=== PATIENT | female | born 1960 | race Caucasian/White ===

== ENCOUNTER 2018-05-03 13:59 | Day surgery (SDC) | payer MEDICARE, SELFPAY ==
[2018-05-03] VITALS (8 sets, daily range): BP systolic 131–160; BP diastolic 69–96; PULSE 76–93; RESP 10–16; TEMP 36.1–36.3; O2SAT 93–99; BMI 56.7; BMI 54.1
--- NOTE | 2018-05-03 15:03 | P.HP_ITS ---
History of Present Illness Date Patient Seen: 05/03/18 Time Patient Seen: 14:58 Chief complaint: [id number] Narrative: Ms. Schneider is a 57-year-old female with a fall and twisting of her right ankle. The patient was seen in the clinic and was instructed to consult Orthopedics service. After reviewing patient's x-ray and determining that patient needs surgical treatment, the patient was contacted and was instructed to be scheduled for surgery treatment at [facility]. Patient History Medical History Cancer of right breast (Acute) Diabetes (Acute) HTN (hypertension) (Acute) Hyperlipidemia (Acute) Thyroid nodule (Acute) Surgical History History of arthroplasty of right knee (Acute) Hx of gastric bypass (Acute) Family & Social History Family History: Reviewed 05/03/18 by Hermila Titus MD Social History: household members none Meds Home Medications Medication Instructions Recorded Confirmed Type aspirin [Aspir-Low] 81 mg PO DAILY 05/03/18 05/03/18 History duloxetine 60 mg PO DAILY 05/03/18 05/03/18 History insulin glargine [Lantus Solostar 26 unit SUB-Q DAILY 05/03/18 05/03/18 History U-100 Insulin] lisinopril 20 mg PO DAILY 05/03/18 05/03/18 History metformin 1,000 mg PO BID 05/03/18 05/03/18 History naproxen sodium [Aleve] 220 mg PO DAILY 05/03/18 05/03/18 History pravastatin 10 mg PO DAILY 05/03/18 05/03/18 History Allergies Allergy/AdvReac Type Severity Reaction Status Date / Time adhesive tape Allergy Blister Verified 05/03/18 14:31 Sulfa (Sulfonamide Allergy Rash Verified 05/03/18 14:31 Antibiotics) Review of Systems Review of Systems All systems reviewed & are unremarkable except as noted in HPI and below Exam Vital Signs (past 8 hours): - 05/03/18 14:39 Temperature 97.1 F L Pulse Rate 93 H Respiratory Rate 16 Blood Pressure 131/79 H Pulse Oximetry 99 Oxygen Delivery Method Room Air Extrem Other: RLE with swelling, neurovascularly intact, skin has wrinkles and no blisters. Objective Imaging R Ankle x-ray: My impression: Right ankle with displaced medial malleolus fracture Assessment & Plan Plan: Assessment/Plan Narrative: 57 yo F with displaced medial malleolus fracture. After discussing risks benefits of treatment options with the patient, patient will be taken to the operative room for open reduction internal fixation of her medial malleolus. Time Spent With Patient Time with patient: 25 - 35 minutes
[2018-05-03 15:04] LABS: Hematocrit 37.2 % (36-46); Hemoglobin 11.9 g/dL (12.0-16.0); Mean Corpuscular HGB Conc 32.1 % (30-36); Mean Corpuscular Hemoglobin 27.2 PG (26-34); Mean Corpuscular Volume 84.5 fL (80-100); Platelet Count 492 X10^3/uL (150-400); Red Blood Cell Count 4.39 X10^6/uL (4.0-5.2); Red Cell Distribution Width 14.6 % (11.6-14.8); White Blood Cell Count 9.4 X10^3/uL (4.5-11.0)
[2018-05-03 15:13] LABS: Blood Urea Nitrogen 20 mg/dL (7-17); Calcium 9.7 mg/dL (8.4-10.2); Carbon Dioxide 32 mmol/L (22-32); Chloride 97 mmol/L (98-107); Estimated Glomerular Filt Rate > 60.0 mL/min (>60); Glucose 113 mg/dL (70-100); HEMOLYSIS < 15 (0-50); Potassium 4.3 mmol/L (3.4-5.1); Sodium 140 mmol/L (137-145)
[2018-05-03] MEDS: LACTATED RINGERS 1,000 ML 42 ML IV (15:13)
[2018-05-03] MEDS: CEFAZOLIN 2 GM/100 ML FROZ.PIGGY IV (15:22)
--- NOTE | 2018-05-03 16:00 | SUR.OPER ---
Supine on padded OR bed, head on gel donut on foam brick, arms secured on padded arm boards at <90 degrees abduction, legs uncrossed, safety belt at thigh, tape over blanket over non operative leg.
[2018-05-03] MEDS: BUPIVACAINE 0.5% (PF) VIAL 30 ML INJ (16:12)
[2018-05-03 16:17] LABS: Neutrophils Absolute Manual 6768 /uL (3000-5900); Total Cells Counted 100
--- NOTE | 2018-05-03 16:30 | DI.RAD.S_ITS ---
PROCEDURE: XR ANKLE RT MIN 3V INDICATIONS: ORIF Right ankle fracture. TECHNIQUE: 3 views of the ankle were acquired. COMPARISON: SNO Outside Film, CR, XR ANKLE 3+ VIEWS RIGHT, 05/01/2018, 12:43. FINDINGS: 3 intraoperative fluoroscopy images demonstrate placement of 2 surgical screws over the medial malleolus IMPRESSION: Open reduction and internal fixation of medial malleolar fracture. Dictated by: Mehnaz Herrera M.D. on 05/03/2018 at 19:13 Approved by: Mehnaz Herrera M.D. on 05/03/2018 at 19:15
--- NOTE | 2018-05-03 16:57 | PM.OP.1 ---
Operative Date/Time/Diagnoses Date of procedure: 05/03/18 Time of procedure: 15:58 Pre-op diagnosis: Right ankle medial malleolus fracture Post-op diagnosis: same Procedure & Clinicians Procedure: Right ankle open reduction internal fixation with 2 medial malleolus screw placement Same procedure as scheduled: Yes Indications: Ms. Schneider had a fall and twisting of her right ankle approximately 5 days ago. Patient has been ambulating on her right lower extremity for 4 days prior to presenting to her family practice physician. X-ray showed a displaced medial malleolus fracture. Orthopaedic service was consulted. After discussing risks benefits of treatment options patient elected proceed with surgical treatment with internal fixation open reduction of her fracture. Surgeon: Hermila Titus Animal Trapper: Radha Olson'Brien Click Yes if Unassisted: No Anesthesia Type: General Operative Notes Closure Type: primary Implants & Drains: Small frag 4.0 partial threaded cancellous screws x2 Estimated Blood Loss (mL): 10 Blood products transfused: none Tourniquet time (min): 45 Procedure in detail: Patient was identified in the preoperative area. Informed consent was obtained and placed in the chart. Surgical site was marked. Patient was then taken to the operating room. Prophylactic antibiotic was given less than half our prior to skin incision. General anesthesia was administered. A tourniquet was placed on patient's right upper thigh. Patient's right lower extremity was prepped and draped in a sterile fashion from the toes all the way to the tourniquet. Time-out was performed at this time. Patient's right leg was then exsanguinated using the Esmarch. Tourniquet was then inflated to 250 mm Hg. Incision was made over the medial malleolus from approximately 3 cm proximal to the tip of the medial malleolus to the tip. Dissection was made down to the level of the periosteum using Metzenbaum scissors. Fracture site was exposed. Periosteum was excised at the edge of the fracture. Hematoma and fragments of bone was freed from the fracture site using micro curette. The tibial talar joint was then inspected. There were multiple loose fragments of cartilage and bone inside the tibiotalar joint which was removed using pickups, irrigation and micro curette. There were several areas of cartilaginous injury on the talus from the trauma. Next a [id number] reduction clamp was used to reduce the medial malleolus. AP and lateral C-arm imaging was used to confirm the reduction which was anatomic. 2.5mm drill bit was used to drill from the tip of the medial malleolus towards the metaphysis. A 2nd 25 drill bit was used to drill in the same fashion from distal tip towards the metaphysis in a parallel fashion. Two 50 mm partially threaded cancellous screw was used to stabilize the fracture after the drill bits was removed from the tip of the medial malleolus both screws had good purchase. AP and lateral x-ray was used to confirm the reduction and maintenance of the reduction of the fracture. Excellent reduction and maintenance of the reduction was confirmed with the x-ray imaging intraoperatively. The wound was then closed using a 2-0 Vicryl and skin linda. Patient's right ankle was then placed into a short-leg posterior splint. Patient was then transferred to recovery room in stable condition. Patient will be instructed to be nonweightbearing to her right ankle for 4 weeks. Patient is instructed to return to clinic in 2 weeks for suture removal and also placed into a short-leg cast. Patient can start weight-bearing in the CAM walker 4 weeks after surgery. Complications: none Condition: stable Disposition: same day surgery Plan for aftercare: D/c home
--- NOTE | 2018-05-03 17:02 | P.OP_ITS ---
Operative Date/Time/Diagnoses Date of procedure: 05/03/18 Time of procedure: 15:58 Pre-op diagnosis: Right ankle medial malleolus fracture Post-op diagnosis: same Procedure & Clinicians Procedure: Right ankle open reduction internal fixation with 2 medial malleolus screw placement Same procedure as scheduled: Yes Indications: Ms. Schneider had a fall and twisting of her right ankle approximately 5 days ago. Patient has been ambulating on her right lower extremity for 4 days prior to presenting to her family practice physician. X- ray showed a displaced medial malleolus fracture. Orthopaedic service was consulted. After discussing risks benefits of treatment options patient elected proceed with surgical treatment with internal fixation open reduction of her fracture. Surgeon: Hermila Titus Manager Meat: Radha Olson'Brien Click Yes if Unassisted: No Anesthesia Type: General Operative Notes Closure Type: primary Implants & Drains: Small frag 4.0 partial threaded cancellous screws x2 Estimated Blood Loss (mL): 10 Blood products transfused: none Tourniquet time (min): 45 Procedure in detail: Patient was identified in the preoperative area. Informed consent was obtained and placed in the chart. Surgical site was marked. Patient was then taken to the operating room. Prophylactic antibiotic was given less than half our prior to skin incision. General anesthesia was administered. A tourniquet was placed on patient's right upper thigh. Patient's right lower extremity was prepped and draped in a sterile fashion from the toes all the way to the tourniquet. Time-out was performed at this time. Patient's right leg was then exsanguinated using the Esmarch. Tourniquet was then inflated to 250 mm Hg. Incision was made over the medial malleolus from approximately 3 cm proximal to the tip of the medial malleolus to the tip. Dissection was made down to the level of the periosteum using Metzenbaum scissors. Fracture site was exposed. Periosteum was excised at the edge of the fracture. Hematoma and fragments of bone was freed from the fracture site using micro curette. The tibial talar joint was then inspected. There were multiple loose fragments of cartilage and bone inside the tibiotalar joint which was removed using pickups, irrigation and micro curette. There were several areas of cartilaginous injury on the talus from the trauma. Next a [id number]-zv-[id number] reduction clamp was used to reduce the medial malleolus. AP and lateral C-arm imaging was used to confirm the reduction which was anatomic. 2.5mm drill bit was used to drill from the tip of the medial malleolus towards the metaphysis. A 2nd 25 drill bit was used to drill in the same fashion from distal tip towards the metaphysis in a parallel fashion. Two 50 mm partially threaded cancellous screw was used to stabilize the fracture after the drill bits was removed from the tip of the medial malleolus both screws had good purchase. AP and lateral x-ray was used to confirm the reduction and maintenance of the reduction of the fracture. Excellent reduction and maintenance of the reduction was confirmed with the x- ray imaging intraoperatively. The wound was then closed using a 2-0 Vicryl and skin linda. Patient's right ankle was then placed into a short-leg posterior splint. Patient was then transferred to recovery room in stable condition. Patient will be instructed to be nonweightbearing to her right ankle for 4 weeks. Patient is instructed to return to clinic in 2 weeks for suture removal and also placed into a short-leg cast. Patient can start weight-bearing in the CAM walker 4 weeks after surgery. Complications: none Condition: stable Disposition: same day surgery Plan for aftercare: D/c home
[2018-05-03] MEDS: OXYCODONE/ACETAMINOPHEN 5/325 TABLET 2 TAB PO (17:34)
--- NOTE | 2018-05-03 20:18 | PC.NURSE ---
New admit note: Received patient from Recovery s/p ORIF right ankle fx. Patient A&O. Patient failed to ambulated in recovery and required further PT management prior to discharge. RLE with a posterior lower leg splint secured with a max wrap, CMS intact. No c/o pain or discomfort. Tolerating PO intake. Will resume home meds. No IV access, patient refused IV access in AC, Dr. Titus notified. Will hold IVF and Abx for now. Call light within reach
[2018-05-03] MEDS: PRAVASTATIN 20 MG TABLET 10 MG PO (21:07)
[2018-05-03] MEDS: INSULIN GLARGINE 100 UNIT/ML 3ML PEN 26 UNIT SUBCUT (21:08)
[2018-05-03] MEDS: METFORMIN HCL 500 MG TABLET 1000 MG PO (21:08)
[2018-05-04 00:08] VITALS: BP 128/66; PULSE 79; RESP 16; TEMP 36.5; O2SAT 97
[2018-05-04] MEDS: OXYCODONE IR 5 MG TABLET PO ×3 (00:20→12:04)
[2018-05-04 05:01] VITALS: BP 114/62; PULSE 76; RESP 16; TEMP 36.6; O2SAT 95
[2018-05-04 08:15] VITALS: BP 114/62; PULSE 76; RESP 14; TEMP 36.6; O2SAT 96
[2018-05-04] MEDS: METFORMIN HCL 500 MG TABLET 1000 MG PO (08:36)
[2018-05-04] MEDS: ASPIRIN EC 81 MG TABLET PO (08:36)
[2018-05-04] MEDS: DULOXETINE 30 MG CAPSULE 60 MG PO (08:37)
--- NOTE | 2018-05-04 08:46 | PM.DS.1 ---
History of Present Illness Date Patient Seen: 05/04/18 Time Patient Seen: 08:47 Chief complaint: [id number] Narrative: Details of the patient's H&P can be found in her electronic chart. Discharge Providers Primary care physician: Adriana Teixeira Consults: 05/03/18 18:54 Consult to Discharge Planning Routine Comment: Consult to Physical Therapy Evaluate & Treat Comment: Physician Instructions: Evaluate and Treat Consult to Respiratory Therapy Evaluate & Treat Comment: Physician Instructions: Evaluate and treat Discharge provider: Ilana Lucas PA-C Summary Discharge Diagnosis: Right ankle medial malleolus fracture Diabetes mellitus Hospital Course: Patient had an ORIF for right ankle medial malleolus fracture by Dr. Titus. She was admitted overnight after surgery. She is will be discharge later today after working with physical therapy. Patient being nonweightbearing on right lower extremity for 4 weeks. She is ambulating with assistance of a walker. Discharge medication is oxycodone 5 mg. Patient also to take aspirin 81 mg twice a day for 2 weeks for DVT prophylaxis. She is to follow up in the office in 2 weeks for postop visit. Status at Discharge Cognitive/behavioral status at discharge: Alert and orient x3 Functional status at discharge: uses cane/walker Overall status at discharge: patient is progressing back to baseline Time Spent with Patient Less than 30 minutes Exam Vital Signs (past 8 hours): - 05/04/18 05:01 Temperature 97.8 F Pulse Rate 76 Respiratory Rate 16 Blood Pressure 114/62 Pulse Oximetry 95 Oxygen Delivery Method Room Air Narrative Exam Narrative: Patient in bed. Appears comfortable. Right lower leg in a postoperative splint and elevated with pillows. Full sensation and movement in toes. Good capillary refill in toes. Patient alert and orient x3. Objective Labs Result Diagrams: 05/03/18 14:41 05/03/18 14:41 Labs: Laboratory Results - last 24 hr 05/03/18 05/03/18 14:41 14:41 WBC 9.4 RBC 4.39 Hgb 11.9 L Hct 37.2 MCV 84.5 MCH 27.2 MCHC 32.1 RDW 14.6 Plt Count 492 H Total Counted 100 Seg Neutrophils % 69.0 Band Neutrophils % 3.0 Lymphocytes % (Manual) 24.0 L Monocytes % (Manual) 3.0 Myelocytes % 1.0 H Neutrophils # (Manual) 6768 H RBC Morphology Not Reportable Sodium 140 Potassium 4.3 Chloride 97 L Carbon Dioxide 32 BUN 20 H Creatinine 0.80 Estimated GFR > 60.0 BUN/Creatinine Ratio 25.0 H Glucose 113 H Calcium 9.7 Discharge Plan Discharge Plan Patient Disposition: Home, Self-Care Discharge Med Rec/Prescriptions Prescriptions: New oxycodone 5 mg tablet 5 mg PO Q4-6H PRN (Reason: pain) Qty: 40 RF: 0 aspirin 81 mg Tablet,Delayed Release (Dr/Ec) 81 mg PO BID 14 Days Qty: 0 RF: 0 Continue lisinopril 20 mg Tablet 20 mg PO DAILY RF: 0 aspirin [Aspir-Low] 81 mg Tablet,Delayed Release (Dr/Ec) 81 mg PO DAILY RF: 0 pravastatin 10 mg Tablet 10 mg PO DAILY RF: 0 metformin 1,000 mg Tablet 1,000 mg PO BID RF: 0 naproxen sodium [Aleve] 220 mg Tablet 220 mg PO DAILY RF: 0 duloxetine 60 mg Capsule,Delayed Release(Dr/Ec) 60 mg PO DAILY RF: 0 insulin glargine [Lantus Solostar U-100 Insulin] 100 unit/mL (3 mL) Insulin Pen 26 unit SUB-Q DAILY RF: 0 Follow up/Referrals: Hermila Titus MD [Physician] - (Follow-up in the office in 14 days. Contact office with any issues or concerns.) Discharge Orders: Discharge (Order); Ordered 05/04/18 Ordered By: Ilana Lucas Provider Discharge Instructions Diet: Carb-consistent/Diabetic Activity: NWB to RLE Keep splint on clean and dry. Ambulate with the assistance of walker. Elevate lower leg with pillows to help with swelling. Cold/Heat Therapy: Apply ice as needed for pain and swelling. Wound Care Report to your healthcare provider any signs of infection, such as:: chills, fever, increased pain and unusual drainage Visit Report/Discharge Packet Instructions: DI for Open Reduction Internal Fixation Surgery Stand Alone Forms: Surgery Discharge Discharge Data Primary Care Provider: Adriana Teixeira Attending Provider: Hermila Titus Quality VTE Deep Vein Thrombosis/Pulmonary Embolism Present on Admission: No
[2018-05-04] MEDS: LISINOPRIL 20 MG TABLET PO (08:48)
--- NOTE | 2018-05-04 09:30 | PT.IIE ---
Current Diagnoses Other fracture of right lower leg, initial encounter for closed fracture (05/03/18) Surgery Performed Operation Date: 05/03/18 15:30 Actual Procedures p Ankle ORIF medial malleolus fx(Right) - Hermila Titus MD Surgical History (Last Reviewed 05/03/18 @ 14:59 by Hermila Titus MD) History of arthroplasty of right knee (Acute) Hx of gastric bypass (Acute) Medical History (Last Reviewed 05/03/18 @ 14:59 by Hermila Titus MD) Cancer of right breast (Acute) Diabetes (Acute) HTN (hypertension) (Acute) Hyperlipidemia (Acute) Thyroid nodule (Acute) Physical Therapy Inpatient Evaluation/Re-Eval M1 PT/OT-IP Prior Functional Status Start: 05/04/18 11:32 Freq: NEEDED Status: Active Protocol: Document 05/04/18 11:41 MDD (Rec: 05/04/18 11:44 MDD [id number]) Medical Review Prior Functional Status Medical History Reviewed Yes Mobility and Gait independent, single point cane occasionally Activities of Daily Living and IADL's independent Social History Household Members none Living Arrangements House Number of Floors (Floors) One Floor Number of Stairs To Enter/Railing? 1 step with L hand railing to platform with additional 3 steps L hand railing to enter. Home Environment Standard Height Toilet Walk in Shower Not Wheelchair Accessible Home Equipment Front Wheel Walker Straight Cane Employment Status Unemployed Additional Social History Comment Son and daughter in-law live in a separate dwelling on property. Son works, but daughter in-law may be available to help if needed. Also has multiple other family members living on property. Sister may be moving in sometime in the future. Lost her in January 2018. Hx of R TKA, pending L TKA. M2 PT-IP Current Condition Start: 05/04/18 11:32 Freq: NEEDED Status: Active Protocol: Document 05/04/18 09:30 MDD (Rec: 05/04/18 11:41 MDD [id number]) Physical Therapy Current Condition Current Condition Evaluation Date 05/04/18 Treatment Diagnosis s/p R ankle ORIF Onset Date 05/03/18 Weight Bearing Status Weight Bearing Status Non-Weight Bearing M3 PT-IP Subjective Start: 05/04/18 11:32 Freq: NEEDED Status: Active Protocol: Document 05/04/18 09:30 MDD (Rec: 07/20/18 11:41 MDD [id number]) Subjective Physical Therapy Visit Type Type Initial Evaluation Visit Start Time 09:30 Visit Stop Time 10:00 Total Visit Minutes 30 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 Agreeable to participate in PT, motivated to go home as soon as possible . Therapy Pain Assessment Pain When Pain Assessed At Rest Pain Present Pain Present Pain Reported Location Right Ankle Intensity 2 Scale Used Numeric (1 - 10) Description Aching M4 PT-IP Mobility and Gait Start: 05/04/18 11:32 Freq: NEEDED Status: Active Protocol: Document 05/04/18 09:30 MDD (Rec: 05/04/18 11:41 MDD [id number]) PT-Bed Mobility Assessment Supine to Sit Supine to Sit Standby Assistance Sit to Supine Sit to Supine Independent Scooting Scooting to Edge of Bed Independent Scooting Up and Down in Bed Independent PT-Transfer Assessment Sit to and From Stand Sit to and from Stand Contact Guard Assistance Equipment Transfer Assistive Device Gait Belt Front Wheeled Walker Transfers Transfer Destination Toilet Transfer Ability Level of Assist Contact Guard Assistance Gait Assessment Gait Gait Assistance Required: Contact Guard Assist Distance (Feet) (feet) 20 Able to Maintain Weight Bearing Status Yes During Gait Assistive Devices Assistive Device Gait Belt Front Wheeled Walker Comments Gait Comments CGA for safety with gait, hopping on L LE to maintain NWB R LE. PT-Balance Assessment Sitting Balance and Reactions Static Sitting Balance Ability Normal Dynamic Sitting Balance Ability Normal Standing Balance and Reactions Static Standing Balance Ability Good Dynamic Standing Balance Ability Good M5 PT-IP Objective Assessments Start: 05/04/18 11:32 Freq: NEEDED Status: Active Protocol: Document 05/04/18 09:30 MDD (Rec: 05/04/18 11:41 MDD [id number]) Orientation Orientation/Cognition Level of Alertness Alert Orientation Name Age Birthday Month Date Year Day of Week Place Situation Language Function Ability No Deficits Noted Safety Awareness Understands Safety Issues Memory Description No Deficits Noted Gross Range of Motion Lower Extremity ROM Assessment Within Functional Limits Strength Lower Extremity Strength Assessment Within Functional Limits M6 PT-IP Treatment Start: 05/04/18 11:32 Freq: NEEDED Status: Active Protocol: Document 05/04/18 09:30 MDD (Rec: 05/04/18 11:41 MDD [id number]) Physical Therapy Treatment Education Education Provided Precautions Weight Bearing Status Safety M7 PT-IP Assessment and Plan Start: 05/04/18 11:32 Freq: NEEDED Status: Active Protocol: Document 05/04/18 09:30 MDD (Rec: 05/04/18 11:41 MDD [id number]) PT Summary Assessment and Plan Potential Rehabilitation Potential Excellent Status of Condition at Evaluation Stable Summary Impairments Pain Strength Balance Transfers Gait Activity Tolerance Progress Towards Goals Progressing Toward Goals Assessment Summary Pt demonstrates ability to perform bed mobility with SBA and was able to ambulate to and from the bathroom maintaining NWB R LE using FWW . Has yet to trial stairs. Goals Bed Mobility Goal Independent Transfer Goal Independent Gait Goal Independent Gait Distance 20 feet on level ground maintaining NWB R LE. Other Goals Ascend/descend 4 steps with L hand railing with CGA to min A . Days to Meet Goals 2 Frequency of Treatment Frequency Of Treatment Twice a Day Treatment Plan Physical Therapy Treatment Plan Transfer Training Gait Training Balance Retraining Post Op Education Other Recommendations and Next Treatment Stair training with son this Focus afternoon. Recommendations To Nursing Amount of Assist Needed 1 Person Assist Discharge Recommendations PT Discharge Recommendations Home with Assistance Equipment Needed for Home Before Consider knee scooter/ W/C for Discharge in home mobility.
[2018-05-04 11:25] VITALS: BP 104/63; PULSE 76; RESP 16; TEMP 36.7; O2SAT 95
--- NOTE | 2018-05-04 12:23 | CM.DANOTE ---
DCP: Case received, EMR reviewed and met with patient. Introduced self and role. DCP template completed with info currently available. Patient is a 57 year old female who admitted yesterday to the care of the hospitalist team. PCP: Dr. Bedolla. Payer: confirmed Medicare. Patient here post-op, had ORIF, secondary to fracture. Has been working with physical therapy. Has been independent prior to hospitalization. P: Will be discharged home, after working with physical therapy. May be pursuing outpatient therapy as well. Karen Kim RN/Cello Teacher
--- NOTE | 2018-05-04 14:30 | PT.IPTN ---
Current Diagnoses Other fracture of right lower leg, initial encounter for closed fracture (05/03/18) Surgery Performed Operation Date: 05/03/18 15:30 Actual Procedures p Ankle ORIF medial malleolus fx(Right) - Hermila Titus MD Physical Therapy Treatment Note M2 PT-IP Current Condition Start: 05/04/18 11:32 Freq: NEEDED Status: Discharge Protocol: Document 05/04/18 09:30 MDD (Rec: 05/04/18 11:41 MDD [id number]) Physical Therapy Current Condition Current Condition Evaluation Date 05/04/18 Treatment Diagnosis s/p R ankle ORIF Onset Date 05/03/18 Weight Bearing Status Weight Bearing Status Non-Weight Bearing M3 PT-IP Subjective Start: 05/04/18 11:32 Freq: NEEDED Status: Discharge Protocol: Document 05/04/18 14:30 GGD (Rec: 05/04/18 15:19 GGD [id number]) Subjective Physical Therapy Visit Type Type Treatment Note Visit Start Time 14:00 Visit Stop Time 14:30 Total Visit Minutes 30 Number of LEADLIGHTER Visits 1 Physical Therapy Visit Comments Patient Comments Pt states she is ready to go home and try the stairs. Therapy Pain Assessment Pain When Pain Assessed At Rest Pain Present Pain Present Pain Reported Location Right Ankle Intensity 3 Scale Used Numeric (1 - 10) M4 PT-IP Mobility and Gait Start: 05/04/18 11:32 Freq: NEEDED Status: Discharge Protocol: Document 05/04/18 14:30 GGD (Rec: 05/04/18 15:19 GGD [id number]) PT-Bed Mobility Assessment Supine to Sit Supine to Sit Standby Assistance Scooting Scooting to Edge of Bed Independent PT-Transfer Assessment Sit to and From Stand Sit to and from Stand Contact Guard Assistance Equipment Transfer Assistive Device Gait Belt Front Wheeled Walker Transfers Transfer Destination Wheelchair Transfer Ability Level of Assist Contact Guard Assistance Gait Assessment Gait Gait Assistance Required: Contact Guard Assist Distance (Feet) (feet) 15 Able to Maintain Weight Bearing Status Yes During Gait Assistive Devices Assistive Device Gait Belt Front Wheeled Walker Comments Gait Comments CGA for safety with gait, hopping on L LE to maintain NWB R LE. Stair Climbing Assessment Comments Stair Climbing Comments Trial of stair mobility with one rail and crutch, Backwards with FWW. Pt unable to hop to step and maintain NWB. Family will build ramp and have alterative way to enter home. M5 PT-IP Objective Assessments Start: 05/04/18 11:32 Freq: NEEDED Status: Discharge Protocol: Document 05/04/18 09:30 MDD (Rec: 05/04/18 11:41 MDD [id number]) Orientation Orientation/Cognition Level of Alertness Alert Orientation Name Age Birthday Month Date Year Day of Week Place Situation Language Function Ability No Deficits Noted Safety Awareness Understands Safety Issues Memory Description No Deficits Noted Gross Range of Motion Lower Extremity ROM Assessment Within Functional Limits Strength Lower Extremity Strength Assessment Within Functional Limits M6 PT-IP Treatment Start: 05/04/18 11:32 Freq: NEEDED Status: Discharge Protocol: Document 05/04/18 14:30 GGD (Rec: 05/04/18 15:19 GGD [id number]) Physical Therapy Treatment Education Education Provided Weight Bearing Status Safety Other Treatments Other Treatment Performed Hand out for DME providers M7 PT-IP Assessment and Plan Start: 05/04/18 11:32 Freq: NEEDED Status: Discharge Protocol: Document 05/04/18 14:30 GGD (Rec: 05/04/18 15:19 GGD [id number]) PT Summary Assessment and Plan Summary Assessment Summary Pt has good bed mobility, and safe with gait. She unable to ascend stairs and family has able to assist with entering home. Frequency of Treatment Frequency Of Treatment Twice a Day Treatment Plan Physical Therapy Treatment Plan Transfer Training Gait Training Balance Retraining Post Op Education Other Recommendations and Next Treatment Stair training with son this Focus afternoon. Recommendations To Nursing Amount of Assist Needed 1 Person Assist Discharge Recommendations PT Discharge Recommendations Home with Assistance Equipment Needed for Home Before Consider knee scooter/ W/C for Discharge in home mobility.
== END 2018-05-04 14:49 | disposition home or self-care (01) ==
LOC: OR 18:07 → AC 18:40
PROVIDERS: PCP Nurse Practitioner Family; Visit Provider Orthopaedic Surgery Orthopaedic Surgery of the Spine
PROC: 0SSF04Z Reposition Right Ankle Joint with Internal Fixation Device, Open Approach (ICD-10-PCS; CPT 27766; principal; 2018-05-03 15:30)
DX: S82.51XA Displaced fracture of medial malleolus of right tibia, initial encounter for closed fracture (principal); W19.XXXA Unspecified fall, initial encounter; E11.9 Type 2 diabetes mellitus without complications; I10 Essential (primary) hypertension; E78.5 Hyperlipidemia, unspecified; Z79.4 Long term (current) use of insulin
CPT/HCPCS: 27766; 73610; 76000; 80048; 82962; 85025; 93005; 97116; 97161; 97530; J0690; J1100; J2405; J2704; J3010

== ENCOUNTER → 2021-01-13 09:11 | Outpatient (CLI) | payer OTHER, SELFPAY ==
[2018-05-03 18:47] VITALS: BMI 54.1
[2021-01-13 11:34] LABS: COVID19 -Nasal RAPID Negative (Negative)
== END ==
PROVIDERS: PCP Nurse Practitioner Family; Visit Provider Student in an Organized Health Care Education/Training Program
DX: Z20.822 Contact with and (suspected) exposure to COVID-19 (principal)
CPT/HCPCS: 87635; C9803

== ENCOUNTER 2021-01-14 06:09 | Day surgery (SDC) | payer OTHER, SELFPAY ==
[2018-05-03 18:47] VITALS: BMI 54.1
[2021-01-12 09:31] VITALS: BMI 47.7
[2021-01-14] VITALS (7 sets, daily range): BP systolic 118–140; BP diastolic 58–81; PULSE 76–101; RESP 12–18; TEMP 36.3–37.2; O2SAT 95–99; BMI 47.7
--- NOTE | 2021-01-14 | DI.RAD.S_ITS ---
PROCEDURE: XR PELVIS 1-2V INDICATIONS: INNER OP TECHNIQUE: Intra-operative view of the pelvis and hip acquired. COMPARISON: None. FINDINGS: Bones: Intraoperative devices prior to placement of arthroplasty prostheses are in expected positions. No fractures or suspicious bony lesions. Soft tissues: Overlying surgical retractors are present, along with other intraoperative changes. IMPRESSION: Expected anatomic alignment of intraoperative right total hip arthroplasty device is in preparation for placement final components of right total hip arthroplasty. Dictated by: Zac Sepulveda M.D. on 01/14/2021 at 10:39 Approved by: Zac Sepulveda M.D. on 01/14/2021 at 10:40
--- NOTE | 2021-01-14 | DI.RAD.S_ITS ---
PROCEDURE: XR HIP W PEL IF DONE RT 2V INDICATIONS: POST OP RT TOTAL HIP TECHNIQUE: 2 view(s) of the hip acquired. COMPARISON: None. FINDINGS: Bones: Patient is status post right hip arthroplasty, with hardware components in expected positions. The hip joint appears congruent. The visualized bony structures appear intact. Soft tissues: Overlying postoperative changes are noted. No suspicious soft tissue densities. Multiple surgical clips project over the left pelvis. IMPRESSION: Expected postsurgical change for right hip arthroplasty. Dictated by: Marine Payan MD, PhD on 01/14/2021 at 13:26 Approved by: Marine Payan MD, PhD on 01/14/2021 at 13:26
[2021-01-14] MEDS: CELECOXIB 200 MG CAPSULE PO (06:58)
[2021-01-14] MEDS: PREGABALIN 75 MG CAPSULE PO (06:58)
[2021-01-14] MEDS: LACTATED RINGERS 1,000 ML 42 ML IV ×2 (07:22→09:57)
[2021-01-14] MEDS: VANCOMYCIN 1,000 MG/200 ML PIGGYBACK 200 MG IV (07:23)
--- NOTE | 2021-01-14 07:34 | PM.PREOP ---
Pre-operative Note COVID-19 COVID-19 status: Negative Interval Note History & Physical reviewed/Exam performed by Physician: Yes Changes to H&P: No
--- NOTE | 2021-01-14 07:35 | P.OP_ITS ---
Operative Date/Time/Diagnoses Date of procedure: 01/14/21 Time of procedure: 07:59 Pre-op diagnosis: Right hip osteoarthritis, morbid obesity Post-op diagnosis: same Procedure & Clinicians Procedure: right total hip arthroplasty posterior approach Same procedure as scheduled: Yes Indications: The patient has had progressively worsening right hip pain with radiographic changes consistent with arthritis. Non-operative management has failed and the patient has requested total hip replacement. The risks, benefits and alternatives to surgery were discussed with the patient prior to proceeding. Risks discussed included, but were not limited to, failure to relieve pain, leg length discrepancy, dislocation, stiffness, infection, nerve damage, deep venous thrombosis, pulmonary embolism, stroke, coma, heart attack, permanent paralysis and , as well as the potential need for eventual revision of the prosthetic. Surgeon: Eliza Castaneda Sand Screener Operator: Zac Camarena Anesthesia Type: General and Spinal Operative Notes Findings: severe right hip osteoarthritis, soft bone, adequate stability Closure Type: primary Specimen(s): none sent Prosthetic devices, grafts, tissues, transplants, or devices: Castaneda and nephew 52 mm R3 cup, 2 screws, neutral poly liner, size 13 Synergy standard offset anthology, 36+ 0 Oxinium head Applied: drain(s) Estimated Blood Loss (mL): 250 Blood products transfused: none Procedure in detail: The patient was seen in the pre-operative area, where the patient identified the right hip as the operative site and this was marked with my initials. The patient received pre-operative antibiotics and was taken to the operating room and placed on the operative table in the left lateral decubitus position after satisfactory anesthesia. A multimedia teacher out was performed. The right leg was prepared from the ankle to the iliac crest with ChloroPrep in the usual fashion and draped through sterile drapes. The hip was approached through an approximately 20 cm incision centered over the greater trochanter and curving gently posteriorly as it went proximally. This was carried sharply to the fascia kay, which was divided and retracted with a s elf retaining retractor. The trochanteric bursa was excised with care being taken to avoid the sciatic nerve, which was identified and protected throughout the case. The short external rotators were incised and the capsulomuscular flap was raised and tagged for later repair. The hip was dislocated, and a femoral neck osteotomy performed approximately 15 mm above the lesser trochanter. Retractors were placed around the femur. The canal was opened with a box cutting osteotome, followed by a T handled reamer and a lateralizing reamer. The chili pepper broach was then used, followed by sequential broaching until there was good stability of the broach in the femur. she had very soft bone and I switch from the anthology to the Synergy to get more distal femoral integrative medicine physician. Retractors were placed to expose the acetabulum. The labrum and central soft tissues were removed. Reaming was performed initially going up in 2 mm increments, then 1 mm increments until good bite was obtained with an odd sized reamer. The cup 1 mm larger than the last reamer was then inserted using the appropriate anteversion guides. it was further stabilized with 2 screws. A trial neutral liner was placed. The broach was placed in the canal. A trial head and neck were then placed and the hip relocated and checked for leg length and stability. An intraoperative film confirmed the component position and no evidence of fracture. The patient was stable in the position of sleep, of squatting, and could be put through a range of motion with 45 degrees internal rotation without dislocation. At 90 degrees flexion, internal rotation to 70? was possible before dislocation. This was felt to be satisfactory and the appropriate components were opened, and the trials were removed. The acetabular liner was impacted into position. The final stem was then impacted into the prepared femoral canal. A brief Betadine soak was performed while trialing with head options. The hip was meticulously irrigated with normal saline. Finally the femoral head was impacted onto the stem. The acetabulum was cleared of all material and the hip relocated one final time. The capsulomuscular flap was then repaired to the greater trochanter though an awl hole using the tag sutures. The short external rotators were repaired with a nonabsorbable suture. A deep drain was placed and brought out anteriorly. The fascia kay was closed with Vicryl. The subcutaneous layer was closed with barbed sutures and skin linda. A Rosalinda dressing was applied and the patient was taken to recovery having tolerated the procedure well. Complications: none Post-operative Condition: stable Disposition: Acute Care Plan for aftercare: The patient will be maintained on a standard total hip replacement protocol with weight bearing as tolerated and posterior hip precautions. The patient will receive Aspirin and sequential compression devices for DVT prophylaxis. The patient will be discharged home when safe for the home environment.
[2021-01-14] MEDS: CEFAZOLIN 2 GM/100 ML FROZ.PIGGY IV ×3 (07:45→22:19)
[2021-01-14] MEDS: TRANEXAMIC ACID 1,000 MG VIAL 1000 MG INJ ×2 (08:25→10:29)
--- NOTE | 2021-01-14 08:51 | SUR.OPER ---
Lateral on padded OR bed. Gel axillary roll. Arms secured on padded armboard with pillow supporting top arm. Padded hip positioner braces x4 - anterior and posterior chest and pelvis. Additional gel pad used anterior pelvis. Gel pad under bottom leg from knee to foot and secured with tape over sheet.
[2021-01-14] MEDS: BUPIVACAINE LIPOSOME 266 MG/20 ML VIAL INJ (09:19)
[2021-01-14] MEDS: SODIUM CHLORIDE IRRIG SOLUTION 250 ML, POVIDONE-IODINE SPONGE STICKS 1 APPLIC IRR (09:27)
[2021-01-14] MEDS: hydrOXYzine 50 MG/ML INJ 25 MG IM (11:31)
[2021-01-14] MEDS: OXYCODONE IR 5 MG TABLET PO ×2 (11:34→21:11)
[2021-01-14] MEDS: ONDANSETRON 4 MG/2 ML INJ IV (11:34)
--- NOTE | 2021-01-14 11:47 | SUR.PHASEI ---
Report given to WATSON Odom, for admission and transfer to room 211. Personal belongings returned to pt. Walker and pt belonging bag not inventoried. Pt affect calm and relaxed. Skin warm and dry. Son called and updated. Notified of room assignment.
--- NOTE | 2021-01-14 14:35 | PT.IIE ---
Current Diagnoses Unilateral primary osteoarthritis, right hip (01/14/21) Radiculopathy, lumbar region (01/14/21) Presence of right artificial knee joint (01/14/21) Surgery Performed Operation Date: 01/14/21 07:45 Actual Procedures p Total Hip Arthroplasty(Right) - Eliza Castaneda MD Surgical History (Last Updated 01/12/21 @ 10:46 by Niru Carlos, RN) H/O hernia repair H/O lumpectomy History of appendectomy History of arthroplasty of right knee History of History of gastric stapling History of total right knee replacement Hx of cholecystectomy Hx of gastric bypass S/P epidural steroid injection Medical History (Last Updated 01/12/21 @ 10:46 by Niru Carlos, RN) Arthritis Cancer of breast Cancer of right breast Depression Diabetes Fibromyalgia History of radiation therapy HTN (hypertension) Hyperlipidemia Lumbar radiculopathy, right Obesity Primary osteoarthritis of right hip Thyroid nodule Physical Therapy Inpatient Evaluation/Re-Eval M1 PT/OT-IP Prior Functional Status Start: 01/14/21 15:41 Freq: NEEDED Status: Active Protocol: Document 01/14/21 14:35 AB (Rec: 01/14/21 15:59 AB [id number]) Medical Review Prior Functional Status Medical History Reviewed Yes Communication able to make needs known Mobility and Gait pt stated that she is modified independent with all mobilities and ambulation without AD indoors but occasionally uses a FWW depending on pain but usually use FWW for outdoor mobility Social History Household Members none Living Arrangements House Number of Floors (Floors) One Floor Number of Stairs To Enter/Railing? 1 platform step R rail + 3 steps R rail to enter the house Home Environment Standard Height Toilet,Walk in Shower Home Equipment Front Wheel Walker,Straight Cane,Shower Seat with Backrest ,Hand Held Shower Additional Social History Comment stated that her sister will stay with her for a few weeks to assist her; son and [id number] lives on the same property as her towards the back of her house and can assist if needed. M2 PT-IP Current Condition Start: 01/14/21 15:41 Freq: NEEDED Status: Active Protocol: Document 01/14/21 14:35 AB (Rec: 01/14/21 15:59 AB [id number]) Physical Therapy Current Condition Current Condition Evaluation Date 01/14/21 Treatment Diagnosis s/p R CARLO posterior approach; difficulty in walking Onset Date 01/14/21 Precautions Posterior Hip Precautions No Hip Flexion > 90 degrees,No Hip Internal Rotation,No Hip Adduction Weight Bearing Status Weight Bearing Status Weight Bear as Tolerated Allowed Weight Bearing Amount (enter % RLE WBAT or #) (%) M3 PT-IP Subjective Start: 01/14/21 15:41 Freq: NEEDED Status: Active Protocol: Document 01/14/21 14:35 AB (Rec: 01/14/21 15:59 AB [id number]) Subjective Physical Therapy Visit Type Type Initial Evaluation Visit Start Time 14:35 Visit Stop Time 15:33 Total Visit Minutes 58 Number of SEAM TAPER MACHINE Visits 0 Physical Therapy Visit Comments Patient Comments pt is agreeable to do PT Therapy Pain Assessment Pain When Pain Assessed During Mobility Pain Present Pain Present Pain Reported Location right hip Intensity 6 Scale Used Numeric (0 - 10) Description Burning Pain Management Techniques Apply Cold,Distraction, Modification of Treatment,Re- positioning,Timing of Activity with Medications M4 PT-IP Mobility and Gait Start: 01/14/21 15:41 Freq: NEEDED Status: Active Protocol: Document 01/14/21 14:35 AB (Rec: 01/14/21 15:59 AB [id number]) PT-Bed Mobility Assessment Supine to Sit Supine to Sit Minimal Assistance Sit to Supine Sit to Supine Moderate Assistance,Maximum Assistance,1 Person Assistance PT-Transfer Assessment Sit to and From Stand Sit to and from Stand Moderate Assistance,1 Person Assistance,Use of Upper Extremities Equipment Transfer Assistive Device Gait Belt,Front Wheeled Walker Orthotic/Prosthetic Devices or Brace: No Transfers Transfer Destination Toilet Transfer Technique ambulated using FWW Transfer Ability Level of Assist Moderate Assistance,1 Person Assistance,Use of Upper Extremities Comments Mobility Comments educated pt on R posterior hip precautions. pt requires cues to recall. completed supine to sit min A and cues. able to sit on EOB SBA. requested to use the toilet. completed sit to stand mod A and cues for hip precautions. ambulated using FWW to the toilet mod A and cues. pt stated that sensation on RLE is not fully back yet. (+) R knee slight buckling requiring mod A for stability and quads activation. completed sit to stand from the toilet using grab bar mod A. ambulated towards the sink using FWW mod A and max cues. pt was able to maintain standing min to mod A while doing handwashing. requested to go back to bed and ambulated using fWW mod A and cues. completed sit to supine max A for RLE elevation to bed. positioned in bed. call light and table placed within reach. set up caregiver training. son will come in ~ 10 am for training tomorrow. pt's FWW has rubber back legs and informed pt to get sliders /tennis balls on them to decrease risk of tripping and falls. pt stated that she will tell her son. Gait Assessment Gait Gait Assistance Required: Moderate Assistance,1 Person Assist Distance (Feet) 12 Able to Maintain Weight Bearing Status Yes During Gait Assistive Devices Assistive Device Gait Belt,Front Wheeled Walker Orthotic/Prosthetic Devices or Brace: No Gait Deviations General Gait Pattern Antalgic,Decreased Stride Length,Decreased Feet Clearance,Step-to Gait Factors Limiting Gait Function Factors Limiting Gait Function Decreased Activity Tolerance, Decreased Sensation,Decreased Strength,Difficulty Following Directions,Limited Range of Motion,Pain,Poor Balance,Poor Safety Awareness Comments Gait Comments pls refer to mobility section for details PT-Balance Assessment Sitting Balance and Reactions Static Sitting Balance Ability Good Dynamic Sitting Balance Ability Good Standing Balance and Reactions Static Standing Balance Ability Fair Dynamic Standing Balance Ability Poor Device Used FWW M5 PT-IP Objective Assessments Start: 01/14/21 15:41 Freq: NEEDED Status: Active Protocol: Document 01/14/21 14:35 AB (Rec: 01/14/21 15:59 AB [id number]) Orientation Orientation/Cognition Level of Alertness Alert Orientation Name,Place,Situation Language Function Ability No Deficits Noted Safety Awareness Decreased Safety Awareness Memory Description Short Term Impaired Gross Range of Motion Lower Extremity ROM Assessment Within Functional Limits Strength Lower Extremity Strength Assessment Right Impaired Hip 3-/5 Knee 3+/5 Sensation Assessment Sensation Gross Sensation Right LE Impaired Light Touch Impaired Proprioception (Position) Impaired Comments Sensation Comments stated that she can feel RLE but not a 100% and is still slightly numb M6 PT-IP Treatment Start: 01/14/21 15:41 Freq: NEEDED Status: Active Protocol: Document 01/14/21 14:35 AB (Rec: 01/14/21 15:59 AB [id number]) Physical Therapy Treatment Education Education Provided Precautions,Weight Bearing Status,Post-Op Packet,Safety M7 PT-IP Assessment and Plan Start: 01/14/21 15:41 Freq: NEEDED Status: Active Protocol: Document 01/14/21 14:35 AB (Rec: 01/14/21 15:59 AB [id number]) PT Summary Assessment and Plan Potential Rehabilitation Potential Good Status of Condition at Evaluation Evolving Summary Impairments Pain,ROM,Strength,Balance, Coordination,Sensation,Tone, Cognition,Bed Mobility, Transfers,Gait,Activity Tolerance Assessment Summary pt requiring mod A with ambulation using FWW. (+) slight R knee buckling during ambulation but pt stated that RLE sensation is not fully back yet. son will be coming in tomorrow at 10 am tomorrow 01/15/21 for caregiver training. will also complete stair climbing training prior to d/c . will continue to assess progress for safe d/c plan. Goals Bed Mobility Goal Standby Assistance Transfer Goal Standby Assistance,Front Wheeled Walker Gait Goal Standby Assistance,Front Wheel Walker Gait Distance 100 Other Goals improve ambulation using FWW 150 ft SBA up/down 1 platform step using FWW and 3 steps R rail SBA Days to Meet Goals 5 Frequency of Treatment Frequency Of Treatment Twice a Day Treatment Plan Physical Therapy Treatment Plan Bed Mobility Training,Transfer Training,Gait Training, Therapeutic Exercise,Balance Retraining,Post Op Education, Discharge Planning,Hot or Cold Pack,Neuromuscular Re-ed, Coordination Retraining,Manual Therapy Precautions Posterior Hip Precautions No Hip Flexion > 90 degrees,No Hip Internal Rotation,No Hip Adduction Recommendations To Nursing Amount of Assist Needed 1 Person Assist Discharge Recommendations PT Discharge Recommendations Home with 08/05 Assist Available,Outpatient PT Transportation Needs at Discharge Private Vehicle
[2021-01-14] MEDS: IBUPROFEN 400 MG TABLET PO ×2 (15:19→19:02)
[2021-01-14] MEDS: LACTATED RINGERS 1,000 ML 125 ML IV ×2 (15:20→22:22)
[2021-01-14] MEDS: ACETAMINOPHEN 325 MG TABLET 650 MG PO ×2 (15:20→20:22)
[2021-01-14] MEDS: GABAPENTIN 300 MG CAPSULE PO ×2 (15:21→20:21)
--- NOTE | 2021-01-14 15:53 | PC.NURSE ---
PT A&Ox3, CMS + to B LE's. VSS, afebrile on RA. LS CTA. ABD SNT, +BS x4. reports BG PACU 116, tolerating PO with advancing as tolerated. Up to BR with PT x1 assist and FWW, sensation returning to BLE's reports some numbness. Hemovac to R hip with minimal out put. Dressing to R hip C/D/I.
--- NOTE | 2021-01-14 18:29 | PC.NURSE ---
Addendum entered by Flaca Barrios R.N. 01/14/21 22:52: Pt reports flexeril and oxycodone good combination to manage pain. Assisted to bathroom to void and back into bed. Excellent observation of hip precautions. CRISELDA dressing dry and intact to right hip. Hemovac compressed and intact. Pillow between legs and BL scd's replaced. Call light available. Addendum entered by Flaca Barrios R.N. 01/14/21 20:48: Dr. Castaneda comes to floor to room to 211 and evaluates CRISELDA dressing. Per Dr. Castaneda, leave dressing as is at this time and PA will change in the a.m. Addendum entered by Flaca Barrios R.N. 01/14/21 20:16: Dr. Castaneda in house finishing in O.R. Conversation with via telephone and informed MD of pt's CRISELDA dressing light blinking marcus indicating dressing requires attention. Informed Dr. Castaneda this com writer has attempted numerous times to reinforce dressing, unkink tubing and can find no reason why light is not blinking green OK mode. Per Dr. Leonel MD to come upstairs to evaluate dressing. Pt does report sensation returning to RLE. Ice replaced to right hip. Addendum entered by Flaca Barrios R.N. 01/14/21 18:53: Ibuprofen doses administered late on emar to allow for four hours between doses. Original Note: Pt alert and awake resting quietly in bed. Denies nausea and states took diet well. Admits to pain to buttocks and was offered narcotics, which pt did not currently accept. Admits to some tingling of right foot and numbness to right anterior thigh. Hemovac drain is connected and compressed. CRISELDA dressing light blinking marcus and was reset twice by this com writer without change. Offered pt up to chair as has been evaluated by P.T. and cleared to mobilize with staff. Pt reminded of hip precautions and was assisted out of bed. Denies dizziness or lightheadedness when up. CRISELDA dressing is securely attached to pt's right hip without evidence of leak or disruption. Device reset and continues to blink marcus. Assisted into chair and call light provided. Encouraged to call staff when desiring or needing to return to bed or bathroom. Pt's son was present prior to pt's mobilization and will return tomorrow for stair training.
[2021-01-14] MEDS: METFORMIN HCL 500 MG TABLET 1000 MG PO (20:21)
[2021-01-14] MEDS: ASPIRIN EC 81 MG TABLET PO (20:21)
[2021-01-14] MEDS: DOCUSATE 100 MG CAPSULE PO (20:21)
[2021-01-14] MEDS: CYCLOBENZAPRINE 10 MG TABLET PO (21:14)
[2021-01-15 00:45] VITALS: BP 133/71; PULSE 93; RESP 18; TEMP 36.7; O2SAT 93
[2021-01-15] MEDS: IBUPROFEN 400 MG TABLET PO ×3 (00:48→09:52)
[2021-01-15 05:00] VITALS: BP 142/65; PULSE 98; RESP 18; TEMP 36.8; O2SAT 96
[2021-01-15] MEDS: HYDROMORPHONE 2 MG TABLET PO (05:23)
[2021-01-15 05:32] LABS: Hemoglobin 9.4 g/dL (12.0-16.0)
[2021-01-15 05:36] LABS: Estimated Glomerular Filt Rate > 60.0 mL/min (>60)
[2021-01-15 07:40] VITALS: BP 119/69; PULSE 93; RESP 18; TEMP 36.5; O2SAT 92
[2021-01-15] MEDS: AMLODIPINE 5 MG TABLET 2.5 MG PO (09:30)
[2021-01-15] MEDS: ACETAMINOPHEN 325 MG TABLET 650 MG PO (09:42)
[2021-01-15] MEDS: ASPIRIN EC 81 MG TABLET PO (09:43)
[2021-01-15] MEDS: GABAPENTIN 300 MG CAPSULE PO (09:43)
[2021-01-15] MEDS: DOCUSATE 100 MG CAPSULE PO (09:43)
[2021-01-15] MEDS: hydroCHLOROthiazide 25 MG TABLET 12.5 MG PO (09:49)
[2021-01-15] MEDS: METFORMIN HCL 500 MG TABLET 1000 MG PO (09:50)
--- NOTE | 2021-01-15 10:28 | P.DS_ITS ---
History of Present Illness History of Present Illness Date Patient Seen: 01/15/21 Time Patient Seen: 10:28 Chief complaint: *OPB* *$350 copay* Narrative: Please refer to previously documented HPI in chart. Discharge Providers Provider Discharge Date: 01/15/21 Primary care physician: SOPHIE Love Consults: 01/14/21 06:00 Consult to Anesthesiology Routine Comment: Consulting Provider: Anesthesiologist Reason for consultation: Regional block for post operative pain control 01/14/21 12:39 Consult to Discharge Planning Routine Comment: Consult to Physical Therapy Evaluate & Treat Comment: Physician Instructions: post op CARLO protocol Consult to Respiratory Therapy Evaluate & Treat Comment: Physician Instructions: Evaluate and treat Discharge provider: Zac Camarena PA-C Summary Hospital Course Discharge Diagnosis: Right hip osteoarthritis Status post total right hip arthroplasty via posterior approach Hospital Course: Female 60 years-old with the above listed diagnoses who was consented for the indicated procedure above and presented to the OR undergoing said procedure without difficulty or complication then admitted for rehabilitation convalescing appropriately without significant issue. The patient was stable for discharge home safely today. They verbalized understanding postoperative care instructions and agreed with plan for follow- up. Exam Vital Signs (past 8 hours): - 01/15/21 05:00 01/15/21 07:40 Temperature 98.2 F 97.7 F Pulse Rate 98 H 93 H Respiratory Rate 18 18 Blood Pressure 142/65 H 119/69 Pulse Oximetry 96 92 Oxygen Delivery Method Room Air Oxygen Flow Rate 0 Narrative Exam Narrative: Morbidly obese female 60years-old observed resting comfortably in no apparent distress and alert and oriented x3. The patient had a regular ra te and normal inspiratory effort. The dressing was clean, dry, intact and changed kranthi dressing with no sign of wound complication. Their extremity distal to the effected joint was neurovascularly intact without weakness. There are no signs or symptoms of DVT bilaterally. Objective Labs Result Diagrams: 01/15/21 05:10 Labs: Laboratory Results - last 24 hr 01/15/21 01/15/21 05:10 05:10 Hgb 9.4 L Hct 30.0 L Creatinine 0.73 Estimated GFR > 60.0 PFSH Medical History (Updated 01/12/21 @ 10:46 by Niru Carlos RN) Arthritis Cancer of breast Cancer of right breast Depression Diabetes Fibromyalgia History of radiation therapy HTN (hypertension) Hyperlipidemia Lumbar radiculopathy, right Obesity Primary osteoarthritis of right hip Thyroid nodule Surgical History (Updated 01/12/21 @ 10:46 by Niru Carlos RN) H/O hernia repair H/O lumpectomy History of appendectomy History of arthroplasty of right knee History of History of gastric stapling History of total right knee replacement Hx of cholecystectomy Hx of gastric bypass S/P epidural steroid injection Social History household members: none Smoking Status: Never smoker alcohol intake: current Discharge Assessment & Plan Assessment and Plan Assessment: Right hip osteoarthritis Status post right hip arthroplasty via posterior approach Plan of Treatment: Discharge home today. Total hip care protocols with posterior dislocation precautions apply Follow-up in 2 weeks in clinic for suture removal and re-evaluation or sooner as needed. Discharge Plan Discharge Plan Patient Disposition: Home Discharge orders & Medications Discharge Orders: Discharge (Order); Ordered 01/15/21 Ordered By: Zac Camarena Prescriptions: New acetaminophen 325 mg Tablet 650 mg PO TID PRN (Reason: Breakthrough Pain, Moderate) Qty: 60 RF: 0 aspirin 81 mg Tablet,Delayed Release (Dr/Ec) 81 mg PO BID Qty: 90 RF: 0 ibuprofen 400 mg Tablet 400 mg PO Q4HR PRN (Reason: Breakthrough Pain, Moderate) Qty: 60 RF: 0 oxycodone 5 mg Tablet 5 mg PO Q3HR PRN (Reason: Pain, Moderate (4-6)) Qty: 60 RF: 0 Continued cyclobenzaprine 10 mg Tablet 10 mg PO TID PRN (Reason: Unlisted) RF: 0 amlodipine 2.5 mg Tablet 2.5 mg PO DAILY RF: 0 gabapentin 300 mg Capsule 300 mg PO TID RF: 0 acetaminophen 500 mg Tablet 1,000 mg PO Q6H PRN (Reason: Pain (Scale Score 7-10)) RF: 0 hydrochlorothiazide 12.5 mg Capsule 12.5 mg PO QAM RF: 0 pravastatin 10 mg Tablet 10 mg PO DAILY RF: 0 metformin 1,000 mg Tablet 1,000 mg PO BID RF: 0 duloxetine 60 mg Capsule,Delayed Release(Dr/Ec) 60 mg PO DAILY RF: 0 Lantus Solostar U-100 Insulin 100 unit/mL (3 mL) Insulin Pen 26 unit SUB-Q DAILY RF: 0 oxycodone 5 mg tablet 5 mg PO Q4-6H PRN (Reason: pain) Qty: 40 RF: 0 Discontinued aspirin [Aspir-Low] 81 mg Tablet,Delayed Release (Dr/Ec) 81 mg PO DAILY RF: 0 Follow up/Referrals: Adriana Teixeira ARNP [Primary Care Provider] - Eliza Castaneda MD [Physician] - (Follow-up in 2 weeks or sooner as needed) Diet/Activity/Treatments Diet: Diet as Tolerated Activity: Weight-bearing as tolerated with front wheel walker on right lower extremity with fall and dislocation precautions per total hip protocol. Cold/Heat Therapy: Ice 20 minutes/hour as tolerated. Skin/Wound/Dressing Care Report to your healthcare provider any signs of infection, such as:: chills, fever, night sweats, increased pain, unusual drainage and unusual redness Dressing: Follow dispensed kranthi dressing instructions and call as needed. Visit Report/Discharge Packet Instructions: DI for Hip Replacement Stand Alone Forms: Surgery Discharge Discharge Data Primary Care Provider: Adriana Teixeira Attending Provider: Eliza Castaneda
--- NOTE | 2021-01-15 10:50 | PT.IPTN ---
Current Diagnoses Unilateral primary osteoarthritis, right hip (01/14/21) Radiculopathy, lumbar region (01/14/21) Presence of right artificial knee joint (01/14/21) Surgery Performed Operation Date: 01/14/21 07:45 Actual Procedures p Total Hip Arthroplasty(Right) - Eliza Castaneda MD Physical Therapy Treatment Note M2 PT-IP Current Condition Start: 01/14/21 15:41 Freq: NEEDED Status: Discharge Protocol: Document 01/14/21 14:35 AB (Rec: 01/14/21 15:59 AB [id number]) Physical Therapy Current Condition Current Condition Evaluation Date 01/14/21 Treatment Diagnosis s/p R CARLO posterior approach; difficulty in walking Onset Date 01/14/21 Precautions Posterior Hip Precautions No Hip Flexion > 90 degrees,No Hip Internal Rotation,No Hip Adduction Weight Bearing Status Weight Bearing Status Weight Bear as Tolerated Allowed Weight Bearing Amount (enter % RLE WBAT or #) (%) M3 PT-IP Subjective Start: 01/14/21 15:41 Freq: NEEDED Status: Discharge Protocol: Document 01/15/21 10:12 CLB (Rec: 01/15/21 12:48 CLB [id number]) Subjective Physical Therapy Visit Type Type Treatment Note Visit Start Time 10:12 Visit Stop Time 10:50 Total Visit Minutes 38 Notes son present for CG training. Number of FURNITURE POLISHER Visits 1 Physical Therapy Visit Comments Patient Comments pt is agreeable to do PT Therapy Pain Assessment Pain When Pain Assessed During Mobility Pain Present Pain Present Pain Reported Location right hip Intensity 4 Scale Used Numeric (0 - 10) Pain Management Techniques Modification of Treatment,Re- positioning,Timing of Activity with Medications M4 PT-IP Mobility and Gait Start: 01/14/21 15:41 Freq: NEEDED Status: Discharge Protocol: Document 01/15/21 10:12 CLB (Rec: 01/15/21 12:48 CLB [id number]) PT-Bed Mobility Assessment Supine to Sit Supine to Sit Standby Assistance Sit to Supine Sit to Supine Minimal Assistance Scooting Scooting to Edge of Bed Standby Assistance PT-Transfer Assessment Sit to and From Stand Sit to and from Stand Standby Assistance,Contact Guard Assistance,Use of Upper Extremities Equipment Transfer Assistive Device Gait Belt,Front Wheeled Walker Orthotic/Prosthetic Devices or Brace: No Transfers Transfer Destination Bed,Chair Transfer Technique ambulated using FWW Transfer Ability Level of Assist Standby Assistance,Contact Guard Assistance,Use of Upper Extremities Comments Mobility Comments Pt able to recall 2/3 precautions, pt re-educated on precautions. Pt son present and very involved with encouragement and assisting pt when needed. Pt stood from chair CGA and ambulated in torres to therapy stairs with antalgic gait and step to gait pattern requiring CGA to start then able to ambulate SBA. Pt climbed three steps with right rail step to step SBA. Pt then ambulated back to room circling the [facility] ~220ft. Once pt was back in room pt able to sit on EOB SBA and required SBA for bed mobility with Min A of RLE. Pt performed ther ex in supine with use of exercise sheet for clear understanding. Pt performed supine-sit and scooting to EOB SBA and transferred SBA back to chair. Educated pt on getting in and out of car. Pt left with son present and all needs within reach. Informed RN of pt mobility. Gait Assessment Gait Gait Assistance Required: Standby Assistance,Contact Guard Assist Distance (Feet) 220 Able to Maintain Weight Bearing Status Yes During Gait Assistive Devices Assistive Device Gait Belt,Front Wheeled Walker Orthotic/Prosthetic Devices or Brace: No Gait Deviations General Gait Pattern Antalgic,Decreased Stride Length,Decreased Feet Clearance,Step-to Gait Factors Limiting Gait Function Factors Limiting Gait Function Decreased Activity Tolerance, Decreased Sensation,Decreased Strength,Difficulty Following Directions,Limited Range of Motion,Pain,Poor Balance Comments Gait Comments pls refer to mobility section for details Stair Climbing Assessment Evaluation Level of Assist On Stairs Standby Assistance Devices Stair Climbing Assistive Devices Right Railing Technique/Endurance Stair Climbing Direction Ascend and Descend Stair Climbing Technique Step to Step Number of Steps Climbed 3 Stair Climbing Set # Repetitions (reps) 1 Comments Stair Climbing Comments see mobility section M5 PT-IP Objective Assessments Start: 01/14/21 15:41 Freq: NEEDED Status: Discharge Protocol: Document 01/14/21 14:35 AB (Rec: 01/14/21 15:59 AB [id number]) Orientation Orientation/Cognition Level of Alertness Alert Orientation Name,Place,Situation Language Function Ability No Deficits Noted Safety Awareness Decreased Safety Awareness Memory Description Short Term Impaired Gross Range of Motion Lower Extremity ROM Assessment Within Functional Limits Strength Lower Extremity Strength Assessment Right Impaired Hip 3-/5 Knee 3+/5 Sensation Assessment Sensation Gross Sensation Right LE Impaired Light Touch Impaired Proprioception (Position) Impaired Comments Sensation Comments stated that she can feel RLE but not a 100% and is still slightly numb M6 PT-IP Treatment Start: 01/14/21 15:41 Freq: NEEDED Status: Discharge Protocol: Document 01/15/21 10:12 CLB (Rec: 01/15/21 12:48 CLB [id number]) Physical Therapy Treatment Education Education Provided Precautions,Weight Bearing Status,Post-Op Packet,Safety M7 PT-IP Assessment and Plan Start: 01/14/21 15:41 Freq: NEEDED Status: Discharge Protocol: Document 01/15/21 10:12 CLB (Rec: 01/15/21 12:48 CLB [id number]) PT Summary Assessment and Plan Potential Rehabilitation Potential Good Status of Condition at Evaluation Evolving Summary Impairments Pain,ROM,Strength,Balance, Coordination,Sensation,Tone, Cognition,Bed Mobility, Transfers,Gait,Activity Tolerance Progress Towards Goals Progressing Toward Goals Assessment Summary Pt improving with all mobility , pt is able to perform sit- stand SBA, ambulated ~220ft in torres CGA then SBA and climbed stairs. Pt is able to get in and out of bed SBA with Min A of RLE onto bed for comfort. Pt son is present and is very encouraging during CG training . Goals Bed Mobility Goal Standby Assistance Transfer Goal Standby Assistance,Front Wheeled Walker Gait Goal Standby Assistance,Front Wheel Walker Gait Distance 100 Other Goals improve ambulation using FWW 150 ft SBA up/down 1 platform step using FWW and 3 steps R rail SBA Days to Meet Goals 5 Frequency of Treatment Frequency Of Treatment Twice a Day Treatment Plan Physical Therapy Treatment Plan Bed Mobility Training,Transfer Training,Gait Training, Therapeutic Exercise,Balance Retraining,Post Op Education, Discharge Planning,Hot or Cold Pack,Neuromuscular Re-ed, Coordination Retraining,Manual Therapy Precautions Posterior Hip Precautions No Hip Flexion > 90 degrees,No Hip Internal Rotation,No Hip Adduction Recommendations To Nursing Amount of Assist Needed 1 Person Assist Discharge Recommendations PT Discharge Recommendations Home with 08/05 Assist Available,Outpatient PT Transportation Needs at Discharge Private Vehicle
[2021-01-15] MEDS: OXYCODONE IR 5 MG TABLET PO (12:00)
--- NOTE | 2021-01-15 12:35 | PC.NURSE ---
Pt is A&Ox3, V.S. afebrile. Reports minimal pain this a.m. able to get up with SBA using FWW to bathroom to void multiple times. BALWINDER Camarena changing CRISELDA dressing, applied new dressing to R hip. linda intact, no drainage or redness to R hip. Reviewed directions as well as provided a print out with care instructions of dressing. Cleared by therapy this a.m. and cleared for discharge. RN reviewed medications, instructions, followup appointments and gave prescriptions to patient. She verbalized understanding and was transported with all of her belongings to private vehicle by MANAGER MARITIME with son picking patient up.
--- NOTE | 2021-01-15 16:03 | CM.DANOTE ---
Discharge Planning/Care Management DCP: assessment: case received and discussed in Team Rounds. PT noted pt was doing well toward her plan for home with son and sister to provide supportive assist. PT admitted yesterday for a scheduled R CARLO. PT did caregiver training today with pt and her son and was cleared for the home setting. A d/c order was noted. A check in now shows pt did leave for home about noon in company of son. Admission status: SDC: per UR WATSON Velazquez/confirmed. Payer: [employer] Adv CM Discharge Assessment Start: 01/15/21 16:02 Freq: Status: Active Protocol: Document 01/15/21 16:03 ITV (Rec: 01/15/21 16:03 ITV [id number]) Discharge Planning Assessment Advance Directives? Yes History Provided By Medical Record Prior Living Arrangements House Household Members none Is patient alert and oriented? Yes Pre-Anesthesia Assessment Start: 01/12/21 09:31 Freq: Status: Complete Protocol: Document 01/12/21 09:31 [facility] (Rec: 01/12/21 11:14 [facility] [id number]) Pre-Anesthesia Assessment PAC Comment Spoke to the patient over the phone, she didn't have time for PAC. Confirmed that she has stopped NSAID, will take DM meds day before surgery, not on DOS. Can take tylenol and gabapentin DOS Patient Information Reviewed Via Chart Review Diagnostic Results EKG Seen Specialist in Last 12 Months Yes Specialist Seen Orthopedist Preferred Language Urdu Height 154.94 cm Weight 114.759 kg Body Mass Index (BMI) 47.7 Hx Anesthesia Reactions No Hx Family Anesthesia Reaction No Hx Malignant Hyperthermia No Hx Blood Transfusion Reaction No Anesthesia Review Requested Yes: Wt/BMI Claims Adjuster No alcohol intake current alcohol intake frequency holidays/special occasions only Smoking Status Never smoker Substance Use Type does not use Musculoskeletal Symptoms Radiating Pain into Limb CPAP/BIPAP use not prescribed Hx Pacemaker/ICD No Hx Urinary Self Catheterization No Diabetes Yes HgbA1C 6.2 Comment 2020 Presence of External or Internal Medical No Devices Lives With none Patient Discharge Plan Description Return Home Do You Have Any Spiritual Beliefs That No May Affect Your HC Choices? Do You Have Any Cultural Practices That No May Affect Your HC Choices? Emergency Contact Name spring Emergency Contact Advance Directives? No Power of Spot Worker Yes Power of Spot Worker Name SHAVON Schneider (sone) Power of Spot Worker
== END 2021-01-15 12:00 | disposition home or self-care (01) ==
LOC: OR 06:12 → AC 06:13
PROVIDERS: PCP Nurse Practitioner Family; Referring Provider Nurse Practitioner Family; Visit Provider Orthopaedic Surgery
PROC: 0SR90JZ Replacement of Right Hip Joint with Synthetic Substitute, Open Approach (ICD-10-PCS; CPT 27130; principal; 2021-01-14 07:45)
DX: M16.11 Unilateral primary osteoarthritis, right hip (principal); E66.01 Morbid (severe) obesity due to excess calories; Z68.42 Body mass index [BMI] 45.0-49.9, adult; I10 Essential (primary) hypertension; E11.42 Type 2 diabetes mellitus with diabetic polyneuropathy; Z79.4 Long term (current) use of insulin
CPT/HCPCS: 27130; 36415; 72170; 73502; 82565; 82962; 85014; 85018; 97110; 97116; 97161; 97530; C1776; C9290; J0690; J1100; J2250; J2405; J2704; J3010; J3410